=== PATIENT | male | born 1990 | race Caucasian/White ===

== ENCOUNTER 2025-02-16 21:09 | Emergency (ER) | payer BC ==
[~2025-02-16] VITALS: Ht 188 cm; Wt 113.4 kg
[2025-02-17] MEDS ORDERED: NAPR-1009 PO (01:03)
[2025-02-17 01:13] VITALS: BP 132/78; TEMP 98.8; O2SAT 98
== END 2025-02-17 01:13 | disposition home or self-care (01) ==
LOC: ER 21:20
DX: S00.83XA Contusion of other part of head, initial encounter (principal); Z79.899 Other long term (current) drug therapy; V43.52XA Car driver injured in collision with other type car in traffic accident, initial encounter; Y93.89 Activity, other specified; Y92.415 Exit ramp or entrance ramp of street or highway as the place of occurrence of the external cause; Y99.8 Other external cause status
CPT/HCPCS: 70450-TC; 72125-TC